=== PATIENT | male | born 1995 | race Two or more races ===

== ENCOUNTER → 2018-04-01 | Outpatient (CLI) | payer OTHER | LOC: M RAD 11:39 | DX: N62 Hypertrophy of breast (principal); N64.4 Mastodynia; N63.22 Unspecified lump in the left breast, upper inner quadrant | CPT/HCPCS: 77066 ==

== ENCOUNTER 2018-11-11 11:24 | Emergency (ER) | payer OTHER ==
[~2018-11-11] VITALS: Ht 172.7 cm; Wt 83.2 kg
[2018-11-11] MEDS ORDERED: HYDR50CA2 PO (11:45)
[2018-11-11 12:01] LABS: HEMATOCRIT 45.5 % (42.0-52.0); HEMOGLOBIN 15.4 g/dl (13.5-17.5); MEAN CORPUSCULAR HEMOGLOBIN 29.5 pg (27.0-33.0); MEAN CORPUSCULAR HGB CONC 33.8 g/dl (32.0-36.5); MEAN CORPUSCULAR VOLUME 87.2 fl (80.0-96.0); PLATELET COUNT, AUTOMATED 258 10^3/uL (150-450); RED BLOOD COUNT 5.22 10^6/uL (4.30-6.10); WHITE BLOOD COUNT 11.1 10^3/uL (4.0-10.0)
[2018-11-11 12:41] LABS: BLOOD UREA NITROGEN 11 MG/DL (7-18); CREATININE FOR GFR 1.22 MG/DL (0.70-1.30); GLOMERULAR FILTRATION RATE > 60.0 (>60); GLUCOSE, FASTING 88 MG/DL (70-100)
[2018-11-11 12:42] LABS: ALBUMIN 4.2 GM/DL (3.2-5.2); ALT/SGPT 23 U/L (12-78); BILIRUBIN,DIRECT 0.2 MG/DL (0.0-0.2); BILIRUBIN,TOTAL 0.8 MG/DL (0.2-1.0); CALCIUM LEVEL 8.9 MG/DL (8.5-10.1); CARBON DIOXIDE LEVEL 25 MEQ/L (21-32); CHLORIDE LEVEL 109 MEQ/L (98-107); POTASSIUM SERUM 4.2 MEQ/L (3.5-5.1); SODIUM LEVEL 142 MEQ/L (136-145); TOTAL PROTEIN 7.5 GM/DL (6.4-8.2)
[2018-11-11 12:52] LABS: BASO % 0.1 % (0.0-1.0); EOS % 0.4 % (0.0-3.0); LYMPH # 1.6 10^3/uL (1.5-6.5); LYMPH % 14.2 % (24.0-44.0); MONO # 0.6 10^3/uL (0.0-0.8); MONO % 5.8 % (0.0-5.0); NEUTROPHILS # 8.7 10^3/uL (1.8-7.7); NEUTROPHILS % 79.2 % (36.0-66.0)
[2018-11-11 13:27] LABS: HIV 1&2 SCREEN CENTAUR NONREACTIVE (NEGATIVE)
[2018-11-11 13:48] VITALS: BP 142/78
== END 2018-11-11 13:55 | disposition home or self-care (01) ==
LOC: M ED 11:24
DX: Z04.89 Encounter for examination and observation for other specified reasons (principal)

== ENCOUNTER → 2018-11-11 | Outpatient (REF) | payer OTHER ==
[~2018-11-11] MED LIST: HYDR50CA2 PO
[2018-11-11 13:18] LABS: CHLAMYDIA DNA AMPLIFICATION NEGATIVE (NEGATIVE); GC DNA AMPLIFICATION NEGATIVE (NEGATIVE)
== END ==
LOC: M SFHCLERA 09:32
PROVIDERS: ATTEND Physician Assistant
DX: Z11.3 Encounter for screening for infections with a predominantly sexual mode of transmission (principal)

== ENCOUNTER → 2019-08-31 | Outpatient (CLI) | payer OTHER ==
--- NOTE | 2019-08-31 15:30 | REP ---
Unilateral focused right breast sonography: History: Hypertrophy of the breast. Scar condition and fibrosis of skin. Comparison sonography April 01, 2018 showed changes consistent with gynecomastia. Status post bilateral gynecomastia resection. Persistent palpable area on the right. In the right retroareolar region centered under the areola there is a 4.0 x 2.6 x 0.7 cm hypoechoic area of tissue quite similar to the previous sonographic appearance. No mass-like properties are seen. This is compatible with residual or recurrent gynecomastia. No cyst is seen. Scanning under the left areola shows a similar area of hypoechoic tissue consistent with gynecomastia. This is actually a little more prominent than on the prior scan measuring roughly 3.9 x 0.7 x 3.5 cm. Impression: Findings consistent with recurrent gynecomastia changes. No mass-like properties. No cyst or fluid collection seen. Findings: The subareolar region of both breasts are scanned, left for comparison purposes. The patient is status post resection bilateral gynecomastia. Electronically Signed by Neil Henriquez MD 08/31/2019 04:53 P
== END ==
LOC: M RAD 13:56
PROVIDERS: ATTEND Plastic Surgery Surgery of the Hand
DX: N62 Hypertrophy of breast (principal); L90.5 Scar conditions and fibrosis of skin

== ENCOUNTER → 2019-10-09 | Outpatient (CLI) | payer OTHER ==
[2019-10-09 16:49] LABS: HEMATOCRIT 46.3 % (42.0-52.0); HEMOGLOBIN 15.3 g/dl (13.5-17.5); MEAN CORPUSCULAR HEMOGLOBIN 29.7 pg (27.0-33.0); MEAN CORPUSCULAR VOLUME 89.9 fl (80.0-96.0); PLATELET COUNT, AUTOMATED 264 10^3/uL (150-450); RED BLOOD COUNT 5.15 10^6/uL (4.30-6.10); WHITE BLOOD COUNT 5.9 10^3/uL (4.0-10.0)
[2019-10-09 17:24] LABS: ALT/SGPT 37 U/L (12-78); BILIRUBIN,DIRECT 0.1 MG/DL (0.0-0.2); BILIRUBIN,TOTAL 0.3 MG/DL (0.2-1.0); BLOOD UREA NITROGEN 14 MG/DL (7-18); CALCIUM LEVEL 8.9 MG/DL (8.5-10.1); CARBON DIOXIDE LEVEL 28 MEQ/L (21-32); CHLORIDE LEVEL 105 MEQ/L (98-107); CREATININE FOR GFR 1.24 MG/DL (0.70-1.30); GLOMERULAR FILTRATION RATE > 60.0 (>60); GLUCOSE, FASTING 74 MG/DL (70-100); POTASSIUM SERUM 4.4 MEQ/L (3.5-5.1); SODIUM LEVEL 139 MEQ/L (136-145); THYROXINE (T4) 9.6 UG/DL (4.5-12.0); TOTAL PROTEIN 7.3 GM/DL (6.4-8.2)
[2019-10-09 17:25] LABS: LUTEINIZING HORMONE 5.6 mIU/mL (1.5-9.3); PROLACTIN 7.2 NG/ML (2.1-17.7)
[2019-10-09 17:27] LABS: ESTRADIOL 36.8 PG/ML (<39.8); FOLLICLE STIMULATING HORMONE 2.7 mIU/mL (1.4-18.1)
[2019-10-12 00:10] LABS: HCG SERUM TUMOR MARKER QUANT < 1 mIU/mL (0-3); TESTOSTERONE FREE (DIRECT) 11.1 pg/mL (9.3-26.5)
== END ==
LOC: M LRY 14:04
PROVIDERS: ATTEND Plastic Surgery Surgery of the Hand
DX: N62 Hypertrophy of breast (principal); L90.5 Scar conditions and fibrosis of skin

== ENCOUNTER 2019-10-22 02:12 | Emergency (ER) | payer OTHER ==
[~2019-10-22] VITALS: Ht 172.7 cm; Wt 80.9 kg
[2019-10-22] MEDS ORDERED: KETOROLAC 60 MG/2 ML VIAL (J1885) IM ONE (03:15)
[2019-10-22] MEDS ORDERED: KETO10TAB PO (03:51)
[2019-10-22 03:56] VITALS: BP 148/70
--- NOTE | 2019-10-22 07:44 | REP ---
Clinical: Acute chest pain . Comparison: None . Findings: The mediastinum and cardiac silhouette are stable and within normal limits for portable technique. The lung marie are clear without acute consolidation, effusion, or pneumothorax. Skeletal structures are intact. Impression: No acute cardiopulmonary process appreciated. Electronically Signed by Matias Pineda MD 10/22/2019 07:35 A
--- NOTE | 2019-10-22 16:10 | ECGEPIP ---
[facility] - ED Test Date: 2019-10-22 Pat Name: JOSE ALFREDO BAEZ Department: Room: - Gender: Male [employer]: manny : 1995 Requested By: MIGNON CULP Order Number: [id number] Reading MD: Bethany Parry Measurements Intervals [place] Rate: 54 P: 56 VA: 177 QRS: 43 QRSD: 101 T: 26 QT: 391 QTc: 373 Interpretive Statements SINUS BRADYCARDIA NO PRIOR Electronically Signed on 10-22-2019 16:10:09 EDT by Bethany Parry
== END 2019-10-22 04:12 | disposition home or self-care (01) ==
LOC: M ED 02:12
DX: R07.1 Chest pain on breathing (principal)
CPT/HCPCS: 71045; 93005; 96372; 99284; J1885

== ENCOUNTER 2020-08-15 02:33 | Emergency (ER) | payer OTHER ==
[~2020-08-15] VITALS: Ht 172.7 cm; Wt 89.4 kg
[~2020-08-15 02:33] MED LIST changes: +KETO10TAB PO
[2020-08-15 02:35] VITALS: BP 154/79
--- OUTSIDE RECORDS SUMMARY | 2020-08-15 02:39 | CCD ---
Author Author [facility] Organization [facility] Address Unknown Phone Unavailable Care Team Providers Care Tool Grinder Name Role Phone DOTTY, E MAURY DO Unavailable Unavailable DOTTY, E MAURY DO Unavailable Unavailable DOTTY, E MAURY DO Unavailable Unavailable DOTTY, E MAURY DO Unavailable Unavailable DOTTY, E MAURY DO Unavailable Unavailable DOTTY, E MAURY DO Unavailable Unavailable DOTTY, E MAURY DO Unavailable Unavailable DOTTY, E MAURY DO Unavailable Unavailable DOTTY, E MAURY DO Unavailable Unavailable DOTTY, E MAURY DO Unavailable Unavailable DOTTY, E MAURY DO Unavailable Unavailable DOTTY, E MAURY DO Unavailable Unavailable DOTTY, E MAURY DO Unavailable Unavailable DOTTY, E MAURY DO Unavailable Unavailable DOTTY, E MAURY DO Unavailable Unavailable DOTTY, E MAURY DO Unavailable Unavailable DOTTY, E MAURY DO Unavailable Unavailable DOTTY, E MAURY DO Unavailable Unavailable DOTTY, E MAURY DO Unavailable Unavailable DOTTY, E MAURY DO Unavailable Unavailable DOTTY, E MAURY DO Unavailable Unavailable Christen Cat RPA-C Unavailable Unavailable Christen Cat RPA-C Unavailable Unavailable Christen Cat RPA-C Unavailable Unavailable Christen Cat RPA-C Unavailable Unavailable Kenniff, P Josemanuel RPA-C Unavailable Unavailable Kenniff, P Josemanuel RPA-C Unavailable Unavailable Kenniff, P Josemanuel RPA-C Unavailable Unavailable Kenniff, P Josemanuel RPA-C Unavailable Unavailable Kenniff, P Josemanuel RPA-C Unavailable Unavailable Kenniff, P Josemanuel RPA-C Unavailable Unavailable Kenniff, P Josemanuel RPA-C Unavailable Unavailable Kenniff, P Josemanuel RPA-C Unavailable Unavailable Kenniff, P Josemanuel RPA-C Unavailable Unavailable Kenniff, P Josemanuel RPA-C Unavailable Unavailable Kenniff, P Josemanuel RPA-C Unavailable Unavailable Kenniff, P Josemanuel RPA-C Unavailable Unavailable Kenniff, P Josemanuel RPA-C Unavailable Unavailable Kenniff, P Josemanuel RPA-C Unavailable Unavailable Kenniff, P Josemanuel RPA-C Unavailable Unavailable Kenniff, P Josemanuel RPA-C Unavailable Unavailable Kenniff, P Josemanuel RPA-C Unavailable Unavailable Kenniff, P Josemanuel RPA-C Unavailable Unavailable Kenniff, P Josemanuel RPA-C Unavailable Unavailable Kenniff, P Josemanuel RPA-C Unavailable Unavailable Kenniff, P Josemanuel RPA-C Unavailable Unavailable Kenniff, P Josemanuel RPA-C Unavailable Unavailable Kenniff, P Josemanuel RPA-C Unavailable Unavailable Kenniff, P Josemanuel RPA-C Unavailable Unavailable Kenniff, P Josemanuel RPA-C Unavailable Unavailable Kenniff, P Josemanuel RPA-C Unavailable Unavailable Kenniff, P Josemanuel RPA-C Unavailable Unavailable Kenniff, P Josemanuel RPA-C Unavailable Unavailable Kenniff, P Josemanuel RPA-C Unavailable Unavailable Kenniff, P Josemanuel RPA-C Unavailable Unavailable Kenniff, P Josemanuel RPA-C Unavailable Unavailable Kenniff, P Josemanuel RPA-C Unavailable Unavailable Kenniff, P Jsoemanuel RPA-C Unavailable Unavailable Kenniff, P Josemanuel RPA-C Unavailable Unavailable Kenniff, P Josemanuel RPA-C Unavailable Unavailable Kenniff, P Josemanuel RPA-C Unavailable Unavailable Kenniff, P Josemanuel RPA-C Unavailable Unavailable Kenniff, P Josemanuel RPA-C Unavailable Unavailable Kenniff, P Josemanuel RPA-C Unavailable Unavailable Kenniff, P Josemanuel RPA-C Unavailable Unavailable Esme FLOREZ MD Unavailable Unavailable Esme FLOREZ MD Unavailable Unavailable Esme FLOERZ MD Unavailable Unavailable Esme FLOREZ MD Unavailable Unavailable Esme FLOREZ MD Unavailable Unavailable Esme FLOREZ MD Unavailable Unavailable Esme FLOREZ MD Unavailable Unavailable Esme FLOREZ MD Unavailable Unavailable Esme FLOREZ MD Unavailable Unavailable Esme FLOREZ MD Unavailable Unavailable Esme FLOREZ MD Unavailable Unavailable Esme FLOREZ MD Unavailable Unavailable Esme FLOREZ MD Unavailable Unavailable Esme FLOREZ MD Unavailable Unavailable Esme FLOREZ MD Unavailable Unavailable Esme FLOREZ MD Unavailable Unavailable Esme FLOREZ MD Unavailable Unavailable Esme FLOREZ MD Unavailable Unavailable Esme FLOREZ MD Unavailable Unavailable Esme FLOREZ MD Unavailable Unavailable Esme FLOREZ MD Unavailable Unavailable Esme FLOREZ MD Unavailable Unavailable Esme FLOREZ MD Unavailable Unavailable Esme FLOREZ MD Unavailable Unavailable Esme FLOREZ MD Unavailable Unavailable Esme FLOREZ MD Unavailable Unavailable Esme FLOREZ MD Unavailable Unavailable Esme FLOREZ MD Unavailable Unavailable Esme FLOREZ MD Unavailable Unavailable Esme FLOREZ MD Unavailable Unavailable Esme FLOREZ MD Unavailable Unavailable Esme FLOREZ MD Unavailable Unavailable Esme FLOREZ MD Unavailable Unavailable Esme FLOREZ MD Unavailable Unavailable Esme FLOREZ MD Unavailable Unavailable Esme FLOREZ MD Unavailable Unavailable Esme FLOREZ MD Unavailable Unavailable Esme FLOREZ MD Unavailable Unavailable Esme FLOREZ MD Unavailable Unavailable Esme FLOREZ MD Unavailable Unavailable Esme FLOREZ MD Unavailable Unavailable Esme FLOREZ MD Unavailable Unavailable Esme FLOREZ MD Unavailable Unavailable Esme FLOREZ MD Unavailable Unavailable Esme FLOREZ MD Unavailable Unavailable Esme FLOREZ MD Unavailable Unavailable Esme FLOREZ MD Unavailable Unavailable Esme FLOREZ MD Unavailable Unavailable Esme FLOREZ MD Unavailable Unavailable Esme FLOREZ MD Unavailable Unavailable Esme FLOREZ MD Unavailable Unavailable Esme FLOREZ MD Unavailable Unavailable Esme FLOREZ MD Unavailable Unavailable Esme FLOREZ MD Unavailable Unavailable Esme FLOREZ MD Unavailable Unavailable Esme FLOREZ MD Unavailable Unavailable Esme FLOREZ MD Unavailable Unavailable Esme FLOREZ MD Unavailable Unavailable Esme FLOREZ MD Unavailable Unavailable Esme FLOREZ MD Unavailable Unavailable Esme FLOREZ MD Unavailable Unavailable Esme FLOREZ MD Unavailable Unavailable Esme FLOREZ MD Unavailable Unavailable Esme FLOREZ MD Unavailable Unavailable Esme FLOREZ MD Unavailable Unavailable Esme FLOREZ MD Unavailable Unavailable Esme FLOREZ MD Unavailable Unavailable Esme FLOREZ MD Unavailable Unavailable Esme FLOREZ MD Unavailable Unavailable Esme FLOREZ MD Unavailable Unavailable Esme FLOREZ MD Unavailable Unavailable Esme FLOREZ MD Unavailable Unavailable Esme BISHOP MD Unavailable Unavailable Esme BISHOP MD Unavailable Unavailable Esme BISHOP MD Unavailable Unavailable Esme BISHOP MD Unavailable Unavailable Esme BISHOP MD Unavailable Unavailable Esme BISHOP MD Unavailable Unavailable Esme BISHOP MD Unavailable Unavailable Esme BISHOP MD Unavailable Unavailable Esme BISHOP MD Unavailable Unavailable Esme BISHOP MD Unavailable Unavailable Esme BISHOP MD Unavailable Unavailable Esme BISHOP MD Unavailable Unavailable Esme BISHOP MD Unavailable Unavailable Esme BISHOP MD Unavailable Unavailable Esme BISHOP MD Unavailable Unavailable Esme BISHOP MD Unavailable Unavailable Esme BISHOP MD Unavailable Unavailable Esme BISHOP MD Unavailable Unavailable Esme BISHOP MD Unavailable Unavailable Esme BISHOP MD Unavailable Unavailable Esme BISHOP MD Unavailable Unavailable Esme BISHOP MD Unavailable Unavailable Esme BISHOP MD Unavailable Unavailable Esme BISHOP MD Unavailable Unavailable Esme BISHOP MD Unavailable Unavailable Esme BISHOP MD Unavailable Unavailable Esme BISHOP MD Unavailable Unavailable Esme BISHOP MD Unavailable Unavailable Esme BISHOP MD Unavailable Unavailable Esme BISHOP MD Unavailable Unavailable Esme BISHOP MD Unavailable Unavailable Esme BISHOP MD Unavailable Unavailable Esme BISHOP MD Unavailable Unavailable Esme BISHOP MD Unavailable Unavailable sEme BISHOP MD Unavailable Unavailable Esme BISHOP MD Unavailable Unavailable Esme BISHOP MD Unavailable Unavailable Esme BISHOP MD Unavailable Unavailable Esme BISHOP MD Unavailable Unavailable Esme BISHOP MD Unavailable Unavailable Esme BISHOP MD Unavailable Unavailable Esme BISHOP MD Unavailable Unavailable Esme BISHOP MD Unavailable Unavailable Esme BISHOP MD Unavailable Unavailable Esme BISHOP MD Unavailable Unavailable Esme BISHOP MD Unavailable Unavailable Esme BISHOP MD Unavailable Unavailable Esme BISHOP MD Unavailable Unavailable Esme BISHOP MD Unavailable Unavailable Esme BISHOP MD Unavailable Unavailable Esme BISHOP MD Unavailable Unavailable Esme BISHOP MD Unavailable Unavailable Esme BISHOP MD Unavailable Unavailable Esme BISHOP MD Unavailable Unavailable Esme BISHOP MD Unavailable Unavailable Esme BISHOP MD Unavailable Unavailable Esme BISHOP MD Unavailable Unavailable Esme BISHOP MD Unavailable Unavailable Esme BISHOP MD Unavailable Unavailable Esme BISHOP MD Unavailable Unavailable Esme BISHOP MD Unavailable Unavailable Esme BISHOP MD Unavailable Unavailable Esme BISHOP MD Unavailable Unavailable Esme BISHOP MD Unavailable Unavailable Re-disclosure Warning The records that you are about to access may contain information from federally-assisted alcohol or drug abuse programs. If such information is present, then the following federally mandated warning applies: This information has been disclosed to you from records protected by federal confidentiality rules (42 CFR part 2). The federal rules prohibit you from making any further disclosure of this information unless further disclosure is expressly permitted by the written consent of the person to whom it pertains or as otherwise permitted by 42 CFR part 2. A general authorization for the release of medical or other information is NOT sufficient for this purpose. The Federal rules restrict any use of the information to criminally investigate or prosecute any alcohol or drug abuse patient.The records that you are about to access may contain highly sensitive health information, the redisclosure of which is protected by Article 27-F of the [facility] Public Health law. If you continue you may have access to information: Regarding HIV / AIDS; Provided by facilities licensed or operated by the [facility] Office of Mental Health; or Provided by the [facility] Office for People With Developmental Disabilities. If such information is present, then the following [facility] mandated warning applies: This information has been disclosed to you from confidential records which are protected by state law. State law prohibits you from making any further disclosure of this information without the specific written consent of the person to whom it pertains, or as otherwise permitted by law. Any unauthorized further disclosure in violation of state law may result in a fine or mcfp sentence or both. A general authorization for the release of medical or other information is NOT sufficient authorization for further disc losure. Allergies and Adverse Reactions Type Description Substance Reaction Status Data Source(s ) No Known Drug Allergies No Known Drug Allergies [facility] No Known Environmental Allergies No Known Environmental Al lergies [facility] No Known Food Allergies No Known Food Allergies [facility] Family History Family Member Name Family Member Gender Family Member Status Date o f Status Description Data Source(s) Unknown Male Problem [facility] ([facility]) Encounters Encounter Providers Location Date Indications Data Source(s ) Outpatient Attender: ANGEL BISHOP MDReferrer: Josemanuel rodriguez RPA-C 06/19/2020 12:12:06 PM EST [facility] Recurring Patient Referrer: Josemanuel GONZALEZC 0 12:06:04 PM EST [facility] Recurring Patient Referrer: Josemanuel Cat RPA-C 0 09:45:05 AM EST [facility] Recurring Patient Referrer: Josemanuel Cat RPA-C 0 09:41:20 AM EST [facility] Outpatient Attender: TALIA FLOREZ MDReferrer: Josemanuel resendiz RPA-C 05/10/2020 12:00:00 AM [facility] Outpatient Attender: TALIA FLOREZ MD 03/08/2020 12:00:00 A M [facility] Outpatient Attender: Josemanuel Cat RPA-C 0 01/22/2020 10:25:00 AM EDT - 01/22/2020 11:25:00 AM EDT [facility] Patient discharged. Recurring Patient Referrer: Josemanuel Cat RPA-C 0 03:21:03 PM EDT [facility] Outpatient Attender: MAURY Day/Peytona/Marshall/Reind l 11/17/2019 11:30:00 AM EDT [facility] ([facility]) Outpatient 11/11/2019 07:39:00 AM EDT [facility] Out[facility] 09/20/2019 05:10:00 AM EST [facility] Out[facility] 09/05/2019 03:52:00 PM EST [facility] Outpatient Attender: MAURY Day/Peytona/Marshall/Reind l 08/23/2019 01:15:00 PM EST [facility] ([facility]) Insurance Providers Payer name Policy type / Coverage type Policy ID Covered democrat ID Covered democrat's relationship to isabel Policy Isabel Plan Information [facility] ACTIVE DUTY [id number] SP [id number] [facility] F [id number] SELF [id number] U [id number] Self [id number] [facility] [place] [id number] 18 [id number] [place] [id number] 18 [id number] [place] [id number] S [id number] [facility] ACTIVE DUTY [id number] SP [id number] [facility] Humana Commercial [id number] Self [id number] [facility] [place] [id number] 18 [id number] [facility] Humana Commercial [id number] Self [id number] ANSI-Not a Secondary Insurance [id number] ACTIVE DUTY [id number] SP [id number] [facility] Hum[employer] Commercial [id number] Self [id number] [facility] [employer] Commercial [id number] Self [id number] Problems, Conditions, and Diagnoses Code Display Name Description Problem Type Effective Dates Data Source(s) [id number] Pain in left shoulder Pain in left shoulder Diagnosis 01/22/2020 10:25:[address] [facility] Results ID Date Data Source [id number] 06/19/2020 12:12:06 PM EST [facility]: Jose Alfredo BarbaDOB: 1995Provider: Chris Bishop: 06/19/2020 Reason For Nisha Barba is here today for LEFT WRIST. Jose Alfredo Barba is a new patient. HERE TODAY C/O LEFT WRIST PAIN SINCE FALL IN 2018. PATIENT STATES HE WAS PLAYING BASEBALL AND FELL BACKWARDS. PAINFUL EVER SINCE. AUG 2019 MRI DONE. ([place]). Patient is working at this time at regular duty. AssessmentNew patient problem. Here for chief complaint left wrist pain. 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 Patient reports pain in the left wrist. Said it began when he fell in 2018. Reports he's had some discomfort in the wrist slowly improving but persistent and limiting some activities since that time. Initially described significant swelling and stiffness. The patient's been treating it primarily with activity modification after using splint support percent time and doing 3 months of occupational therapy. Ultimately limitations in ability prompted the providers at work drum to obtain an MRI of the left wrist. Indistinct TFCC was read as palmar type IB tear peripheral and a central disc perforation. Patient's here for further evaluation.Reports she has been normal some days but other days some limitation and some discomfort. Flat handed pushups or bothers him. He reports his admin dir strength is diminished when doing juWatly BVtsu activities. Doesn't see any visible swelling. Has no mechanical symptoms. Denies numbness and tingling in the fingers.No new medications.Exam:Awake and alert, well-developed, well nourished and in no distress Patient is oriented x3, mood appropriate, gait normal, coordination normal, vascular status intact , skin is intact without breakdown or lesions.Bilateral upper extremities show full motion shoulder elbow wrist and hand. No obvious swelling or deformity about the left wrist. No focal tenderness over the ulnar styloid ECU tendon LT interval. No instability or stress tenderness of the distal radioulnar joint left. Mild capsular tenderness of the dorsal wrist with dorsiflexion. No evidence of SL interval or midcarpal instability. Tinel's and Phalen's negative. 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 MR findings in the TFCC but clinically minimal findings there.Plan: Discussed the results of the medical exam. Discussed the nature of the medical condition. Discussed treatment options. 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 Sent here for TFCC evaluation based on findings on MR but clinically the patient has no attributable symptoms to the TFCC or ulnar wrist on exam today. He is managing the symptoms with activity modification, splint support. I think that's perfectly reasonable. We discussed injection. We discussed surgery and this is just simply not bad enough for consideration of surgical treatment. Basically we discussed an arthroscopy because he remains symptomatic with wrist complaints to his superior requesting limited duty on an ongoing basis and MR findings which don't really correlate with the patient's clinical symptoms. Arthroscopy sometimes needed for further clarification of the significance of the MR findings. Again I don't think is really indicated in this situation. I think that he has improved feels positive that his symptoms can be managed with slight activity modification such as limited Flathand pushups. Pushups on a pushup stand or on his knuckles can be done without limitation. Sym ptoms change he can return for reevaluation.This note was dictated using [employer] voice recognition software. A reasonable attempt was made to access the note for accuracy and grammatical correctness.Please contact us for any questions regarding the content of the above note.Angel Bishop [facility]: The patient Signatures Electronically signed by : Angel Bishop M.D.; Jun 19 2020 12:12PM EST (Author) Name Value Range Interpretation Code Description Data Mary Jo rce(s) Supporting Document(s) ID Date Data Source [id number] 01/23/2020 08:40:00 [place] [address] PHONE: [phone] FAX: [phone] Name .................. : SASHA VELIZ Acct Number.................. : [id number] ROOM. ................. : Number ................... : [id number] Stay type ............. : O/P Discharge Date......... ... : 01/22/20 Admit Date ....... .. : 01/22/20 Admit Phys .................... : ELOISE PATEL Date of ....... : 1995 Family Phys ................... : NONSTAFF Phone .................. : [phone] Age ................................ : 24 Film# .................. .:[id number] Sex ................................. : M Unsigned transcriptions are preliminary reports and do not represent a medical or legal document INJECTION FOR SHOULDER ARTHRO [id number] COMPLETE:01/22/20 10:30 64304 (REASON FOR PROCESS: PAIN FLUOROSCOPIC EXAMINATION OF THE LEFT SHOULDER FOR ARTHROGRAM, 01/22/20: INDICATION: Pain. PROCEDURE: The benefits and risks of the examination were discussed with the patient. The patient has given informed consent for the procedure. A time out was performed confirming the left shoulder is the proper shoulder for today's examination. The skin surface was marked using fluoroscopic guidance. The skin was prepped and dressed in normal sterile fashion. Superficial and deep Lidocaine administration was performed with a 25- gauge needle. A 22- gauge spinal needle was then placed and advanced under fluoroscopic guidance. The needle was passed into the joint space at which time iodinated contrast was administered to confirm proper placement. Approximately 5 cc of iodinated contrast was administered. Once the proper placement was confirmed, approximately 7 cc of 1:200 Gadolinium solution was administered. The needle was then removed. The skin was cleansed and bandaged. No complications were experienced during the procedure. Three images were obtained, and fluoro time was 3 seconds. Examination dictated by ADI Acosta. Examination was reviewed with Hiren Curtis MD, radiologist at the time of this dictation. Page 1 of 2 [facility] [address] [place] [address] PHONE: [phone] FAX: [phone] Name .................. : SASHA VELIZ Acct Number.................. : [id number] ROOM. ................. : Number ................... : [id number] Stay type ............. : O/P Discharge Date......... ... : 01/22/20 Admit Date ......... : 01/22/20 Admit Phys .................... : ELOISE PATEL Date of ....... : 1995 Family Phys ................... : NONSTAFF Phone .................. : [phone] Age ................................ : 24 Film# .................. .:[id number] Sex ................................. : M Unsigned transcriptions are preliminary reports and do not represent a medical or legal document INJECTION FOR SHOULDER ARTHRO [id number] COMPLETE:01/22/20 10:30 78308 (REASON FOR PROCESS: PAIN Electronically Reviewed and Signed By Hiren Curtis MD , 01/23/20 08:40, AML Transcribe Initials: SSR, Transcribe Date: 01/22/20 13:33, Dictation Date: Copy for: [facility] Page 2 of 2 Name Value Range Interpretation Code Description Data Mary Jo rce(s) Supporting Document(s) ID Date Data Source [id number] 01/23/2020 08:38:00 AM EDT [facility] [address] [place] [address] PHONE: [phone] FAX: [phone] Name .................. : SASHA VELIZ Acct Number.................. : [id number] ROOM. ................. : MR Number ................... : [id number] Stay type ............. : O/P Discharge Date......... ... : 01/22/20 Admit Date ....... .. : 01/22/20 Admit Phys .................... : ELOISE PATEL Date of ....... : 1995 Family Phys ................... : NONSTAFF Phone .................. : [phone] Age ................................ : 24 Film# .................. .:[id number] Sex ................................. : M Unsigned transcriptions are preliminary reports and do not represent a medical or legal document MRI UPPER EXT JOINT W CONT [place] [id number] COMPLETE:01/22/20 12:32 [facility] [id number] (REASON FOR PROCESS: PAIN MRI OF THE LEFT SHOULDER: TECHNIQUE: Imaging was performed following intra-articular Gadolinium administration. FINDINGS: Fracture, destructive osseous lesion or osteonecrosis is not seen. The supraspinatus tendon, subscapularis tendon, infraspinatus tendon, teres minor tendon and long head of the biceps tendon are intact. A labral tear is not appreciated. The glenohumeral ligaments appear intact. Abn ormal bursal fluid collection is not identified. IMPRESSION: Unremarkable MRI of the left shoulder with intra-articular Gadolinium administration. Electronically Reviewed and Signed By Ariadna Aj MD , 01/23/20 08:38, NOHELIA Transcribe Initials: DZ , Transcribe Date: 01/22/20 23:16, Dictation Date: Copy for: [address] [facility] Page 1 of 1 Name Value Range Interpretation Code Description Data Mary Jo rce(s) Supporting Document(s) ID Date Data Source [id number] 10/09/2019 02:40:00 PM EDT [facility] ([facility]) Name Value Range Interpretation Code Description Data Mary Jo rce(s) Supporting Document(s) Testosterone Total For T&D 620.0 ng/dL [id number] Azra l (applies to non-numeric results) [facility] ([facility]) <content>Adult male reference interval i s based on a population of</content>
<content>healthy nonobese males (BMI <30) between 19 and 39 years</content>
<content>old. Mariposa et.al. JCEM 2017,102;9082-0556. PMID:</content>
<content>[id number].</content>
<content></content> Testosterone Free (Direct) 11.1 pg/mL 9.3-26.5 Azra l (applies to non-numeric results) [facility] ([facility]) ID Date Data Source [id number] 10/09/2019 02:40:00 PM EDT [facility] ([facility]) Name Value Range Interpretation Code Description Data Mary Jo rce(s) Supporting Document(s) Prolactin [Mass/volume] in Serum or Plasma 7.2 ng/mL 2.1-1 7.7 Normal (applies to non-numeric results) [facility] ([facility] ) Choriogonadotropin.beta subunit free [Units/volume] in Serum or Plasma Laboratory test result 0-3 Normal (applies to non-numeric results) [facility] ([facility]) Romana ECLIA methodology Performed at: [facility] [address] [id number] Turntable Worker: Citlaly Hernandez MD, Phone: [phone] THE hCG ASSAY IS PERFORMED BY ROMANA [facility]CL[facility] [employer] AT [facility] AND SHOULD NOT BE COMPARED INTERCHANGEABLY WITH OTHER METHODS. IT SHOULD NOT BE USED ALONE A SCREENING TEST OR DIAGNOSIS FOR THE PRESENCE OR ABSENCE OF MALIGNANT DISEASE. THESE RESULTS ARE NOT INTERPRETABLE IN FEMALES. PREDICTIONS OF DISEASE RECURRENCE SHOULD NOT BE BASED SOLELY ON VALUES OBTAINED FROM SERIAL PATIENT SERUM VALUES. ID Date Data Source [id number] 10/09/2019 02:40:[address] [facility]) Name Value Range Interpretation Code Description Data Mary Jo rce(s) Supporting Document(s) Follicle Stimulating Hormone 2.7 mIU/mL 1.4-18.1 Nor mal (applies to non-numeric results) [facility] ([facility]) Luteinizing Hormone 5.6 mIU/mL 1.5-9.3 Normal (applies to no n-numeric results) [facility]) ID Date Data Source [id number] 10/09/2019 02:40:[address] [facility]) Name Value Range Interpretation Code Description Data Mary Jo rce(s) Supporting Document(s) Estradiol (E2) [Mass/volume] in Serum or Plasma 36.8 pg/mL Normal (applies to non-numeric results) [facility]) <content>NORMAL MENSTRUATING FEMALES:</content>
<content></content>
<content>FOLLICULAR PHASE 19.5-144.2 PG/ML</content>
<content>MID CYCLE PEAK 63.9- 356.7 PG/ML</content>
<content>LUTEAL PHASE 55.8-214.2 PG/ML</content>
<content></content>
<content>POST MENOPAUSAL FEMALES <32.2 PG/ML</content>
<content>(UNTREATED)</content>
<content></content>
<content>THE eESTRADIOL2 ASSAY IS PERFORMED ON THE [employer] BY</content>
<content>CHEMILUMINESCENCE AND SHOULD NOT BE COMPARED INTERCHANGEABLY</content>
<content>WITH OTHER METHODS.</content>
<content></content>
<content>Falsely elevated Estradiol test results can be seen in</content>
<content>patients treated with fulvestrant (Faslodex). Estradiol</content>
<content>concentrations in fulvestrant treated women should only be</content>
<content>measured by LC- MS (Liquid Chromatography-Mass Spectrometry).</content>
<content></content> Progesterone [Mass/volume] in Serum or Plasma 0.80 ng/mL 0. 28-1.22 Normal (applies to non-numeric results) [facility] ([facility]) Thyroxine (T4) [Mass/volume] in Serum or Plasma 9.6 ug/dL 4.5-12.0 Normal (applies to non-numeric results) [facility] ([facility]) Thyrotropin [Units/volume] in Serum or Plasma 3.790 uIU/ML 0. 358-3.740 Above high normal [facility] ([facility]) ID Date Data Source [id number] 10/09/2019 02:40:00 PM EDT [facility] ([facility]) Name Value Range Interpretation Code Description Data Mary Jo rce(s) Supporting Document(s) Blood Urea Nitrogen 14 mg/dL 7-18 Normal (applies to non-nume michelle results) [facility] ([facility]) Glucose, Fasting 74 mg/dL 70-100 Normal (applies to non-numeric results) [facility] ([facility]) Sodium Level 139 meq/L 136-145 Normal (applies to non-numeric res ults) [facility] ([facility]) Creatinine For GFR 1.24 mg/dL 0.70-1.30 Normal (applies to non -numeric results) [facility] ([facility]) Glomerular Filtration Rate Laboratory test result Normal (applies to non- numeric results) [facility]) <content>Units are mL/min/1.73 m2</content>
<content></content>
<content>Chronic Kidney Disease Staging per NKF:</content>
<content></content>
<content>Stage I & II GFR >=60 Normal to Mildly Decreased</content>
<content>Stage III GFR 30- 59 Moderately Decreased</content>
<content>Stage IV GFR 15-29 Severely Decreased</content>
<content>Stage V GFR <15 Very Little GFR Left</content>
<content>ESRD GFR <15 on NATURAL HISTORY COLLECTIONS CURATOR</content>
<content></content> Carbon Dioxide Level 28 meq/L 21-32 Normal (applies to non-num carlos results) [facility] ([facility]) Chloride Level 105 meq/L 98-107 Normal (applies to non-numeric r esults) [facility] ([facility]) Potassium Serum 4.4 meq/L 3.5-5.1 Normal (applies to non-numeric results) [facility] ([facility]) Anion Gap 6 meq/L 8-16 Below low normal [facility] ( [facility]) Calcium Level 8.9 mg/dL 8.5-10.1 Normal (applies to non-numeric re sults) [facility] ([facility]) ID Date Data Source [id number] 10/09/2019 02:40:00 PM EDT [facility] ([facility]) Name Value Range Interpretation Code Description Data Mary Jo rce(s) Supporting Document(s) Alt/SGPT 37 U/L 12-78 Normal (applies to non-numeric resul ts) [facility] ([facility]) Ast/Sgot 32 U/L 7-37 Normal (applies to non-numeric resul ts) [facility] ([facility]) Alkaline Phosphatase 77 U/L 45-117 Normal (applies to non-num carlos results) [facility]) Bilirubin,Total 0.3 mg/dL 0.2-1.0 Normal (applies to non-numeric results) [facility] ([facility]) Albumin 4.0 GM/DL 3.2-5.2 Normal (applies to non-numeric resul ts) [facility]) Bilirubin,Direct 0.1 mg/dL 0.0-0.2 Normal (applies to non-numeric results) [facility]) Total Protein 7.3 GM/DL 6.4-8.2 Normal (applies to non-numeric re sults) [facility]) Albumin/Globulin Ratio 1.21 1.00-1.93 Normal (applies to non-numeric results) [facility]) ID Date Data Source [id number] 10/09/2019 02:40:[address] [facility]) Name Value Range Interpretation Code Description Data Mary Jo rce(s) Supporting Document(s) Red Blood Count 5.15 10 4.30-6.10 Normal (applies to non-numeric results) [facility]) White Blood Count 5.9 10 4.0-10.0 Normal (applies to non-numeri c results) [facility]) Hemoglobin 15.3 g/dL 13.5-17.5 Normal (applies to non-numeric resul ts) [facility]) Hematocrit 46.3 % 42.0-52.0 Normal (applies to non-numeric resul ts) [facility]) Mean Corpuscular HGB Conc 33.0 g/dL 32.0-36.5 Normal (applies to non-numeric results) [facility]) Mean Corpuscular Hemoglobin 29.7 pg 27.0-33.0 Norm al (applies to non-numeric results) [facility]) Red Cell Distribution Width 12.8 % 11.5-14.5 Norm al (applies to non-numeric results) [facility]) Mean Corpuscular Volume 89.9 fl 80.0-96.0 Normal ( applies to non-numeric results) [facility]) Platelet Count, Automated 264 10 150-450 Normal (applies to non-numeric results) [facility]) Nucleated Red Blood Cell % 0.0 % 0-0 Normal (applies to n on-numeric results) [facility] ([facility]) Procedure Vital Signs ID Date Data Source [id number] Name Value Range Interpretation Code Description Data Source(s) Body weight 86.184 kg 86.184 kg [facility] ([facility]) Body mass index (BMI) [Ratio] 28.5 kg/m2 28.5 k g/m2 [facility] ([facility]) Body weight 190.00 [lb_av] 190.00 [lb_av] [facility] ([facility]) Body height 68.5 [in_i] 68.5 [in_i] [facility] ([facility]) 5'8.50" Body temperature 97.2 [degF] 97.2 [degF] [facility] ([facility]) Respiratory rate 14 /min 14 /min [facility] ( [facility]) Heart rate 76 /min 76 /min [facility] ([facility]) Diastolic blood pressure 78 mm[Hg] 78 mm[Hg] [facility] ([facility]) Systolic blood pressure 138 mm[Hg] 138 mm[Hg] [facility] ([facility]) Body height 68.5 [in_i] 68.5 [in_i] [facility] ([facility]) 5'8.50" Body temperature 98.1 [degF] 98.1 [degF] [facility] ([facility]) Respiratory rate 14 /min 14 /min [facility] ( [facility]) Heart rate 66 /min 66 /min [facility] ([facility]) Diastolic blood pressure 78 mm[Hg] 78 mm[Hg] [facility] ([facility]) Systolic blood pressure 142 mm[Hg] 142 mm[Hg] M [facility] ([facility]) Body weight 79.834 kg 79.834 kg [facility] ([facility]) Body mass index (BMI) [Ratio] 26.4 kg/m2 26.4 k g/m2 [facility] ([facility]) Body weight 176.00 [lb_av] 176.00 [lb_av] RISHABHEN T ([facility], ) Body height 68.5 [in_i] 68.5 [in_i] RUBINA ([facility], ) 5'8.50" Respiratory rate 14 /min 14 /min [facility] ( [facility], ) Heart rate 76 /min 76 /min [facility] ([facility], ) Diastolic blood pressure 68 mm[Hg] 68 mm[Hg] [facility]UB[facility] ([facility], ) Systolic blood pressure 140 mm[Hg] 140 mm[Hg] Herbert DOWNING ([facility], )
[2020-08-15] MEDS ORDERED: TRAZ-252 PO (02:48)
[2020-08-15] MEDS ORDERED: DOCU100C16 PO (02:48)
--- OUTSIDE RECORDS SUMMARY | 2020-08-15 04:25 | CCD ---
Author Author [facility] Organization [facility] Address Unknown Phone Unavailable Care Team Providers Care Inventory Control Associate Name Role Phone DOTTY, E MAURY DO [...] Unavailable Esme BISHOP MD Unavailable Unavailable Esme IBSHOP MD Unavailable Unavailable Esme BISHOP MD Unavailable [...] Unavailable Esme BISHOP MD Unavailable Unavailable Esme IBSHOP MD Unavailable Unavailable Esme BISHOP MD Unavailable [...] is protected by Article 27-F of the [facility] Public Health law. If you continue you may have access to information: Regarding HIV / AIDS; Provided by facilities licensed or operated by the [facility] Office of Mental Health; or Provided by the [facility] Office for People With Developmental Disabilities. If such information is present, then the following [facility] mandated warning applies: This information has been [...] law may result in a fine or skilled nursing sentence or both. A general authorization for the release of medical or other information is NOT sufficient authorization for further disc losure. Allergies and Adverse Reactions Type Description Substance Reaction Status Data Source(s ) No Known Drug Allergies No Known Drug Allergies [facility] No Known Environmental Allergies No Known Environmental Al lergies [facility] No Known Food Allergies No Known Food Allergies [facility] Family History Family Member Name Family Member Gender Family Member Status Date o f Status Description Data Source(s) Unknown Male Problem [facility] ([facility]) Encounters Encounter Providers Location Date Indications Data Source(s ) Outpatient Attender: ANGEL BISHOP MDReferrer: Josemanuel rodriguez RPA-C 06/19/2020 12:12:06 PM EST [facility] Recurring Patient Referrer: Josemanuel GONZALEZC 0 12:06:04 PM EST [facility] Recurring Patient Referrer: Josemanuel Cat RPA-C 0 09:45:05 AM EST [facility] Recurring Patient Referrer: Josemanuel Cat RPA-C 0 09:41:20 AM EST [facility] Outpatient Attender: TALIA FLOREZ MDReferrer: Josemanuel resendiz RPA-C 05/10/2020 12:00:[address] [facility] Outpatient Attender: TALIA FLOREZ MD 03/08/2020 12:00:[address] [facility] Outpatient Attender: Josemanuel Cat RPA-C 0 01/22/2020 10:25:00 AM EDT - 01/22/2020 11:25:00 AM EDT [facility] Patient discharged. Recurring Patient Referrer: Josemanuel Cat RPA-C 0 03:21:03 PM EDT [facility] Outpatient Attender: MAURY [place] 11/17/2019 11:30:00 AM EDT [facility] ([facility]) Outpatient 11/11/2019 07:39:00 AM EDT [facility] Outpatient 09/20/2019 05:10:00 AM EST [facility] Outpatient 09/05/2019 03:52:00 PM EST [facility] Outpatient Attender: MAURY Day/[place] 08/23/2019 01:15:00 PM EST [facility] ([facility]) Insurance Providers Payer name Policy type / Coverage type Policy ID Covered constitution party ID Covered constitution party's relationship to isabel Policy Isabel Plan Information [facility] ACTIVE DUTY [id number] SP [id number] [facility] F [id number] SELF [id number] U [id number] Self [id number] [facility] [place] [id number] 18 [id number] [place] [id number] 18 [id number] [place] [id number] S [id number] [facility] ACTIVE DUTY [id number] SP [id number] [facility] Humana Commercial [id number] Self [id number] [facility] [place] [id number] 18 [id number] [facility] Hum[employer] Commercial [id number] Self [id number] ANSI-Not a Secondary Insurance [id number] ACTIVE DUTY [id number] SP [id number] [facility] [employer] Commercial [id number] Self [id number] [facility] [employer] Commercial [id number] Self [id number] Problems, Conditions, and Diagnoses Code Display Name Description Problem Type Effective Dates Data Source(s) U63215 Pain in left shoulder Pain in left shoulder Diagnosis 01/22/2020 10:25:00 AM [facility] Results ID Date Data Source [id number] 06/19/2020 12:12:06 PM EST [facility]: Jose Alfredo BarbaDOB: 1995Provider: Chris Bishop: 06/19/2020 Reason For Nisha Barba is here today for LEFT WRIST. Jose Alfredo Barba is a new patient. HERE TODAY C/O LEFT WRIST PAIN SINCE FALL IN 2018. PATIENT STATES HE WAS PLAYING BASEBALL AND FELL BACKWARDS. PAINFUL EVER SINCE. AUG 2019 MRI DONE. ([employer]). Patient is working at this time at regular duty. AssessmentNew patient problem. Here for chief complaint left wrist pain. 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 Patient reports pain in the left wrist. [...] pushups or bothers him. 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 Doesn't see any visible swelling. Has [...] or midcarpal instability. Tinel's and Phalen's negative. Gear Shaper strength 120/120/120 pounds right and 100/90/90 pounds [...] return for reevaluation.This note was dictated using [email or web address] voice recognition software. A reasonable attempt was made to access the note for accuracy and grammatical correctness.Please contact us for any questions regarding the content of the above note.Angel Bishop [facility]: The patient Signatures Electronically signed by : Angel Bishop M.D.; Jun 19 2020 12:12PM EST (Author) Name Value Range Interpretation Code Description Data Mary Jo rce(s) Supporting Document(s) ID Date Data Source [id number] 01/23/2020 08:40:00 [place] [address] PHONE: [phone] FAX: [phone] Name .................. : SASHA VELIZ Acct Number.................. : [id number] ROOM. ................. : Number ................... : [id number] Stay type ............. : O/P Discharge Date......... ... : 01/22/20 Admit Date ....... .. : 01/22/20 Admit Phys .................... : ELOISE PATEL Date of ....... : 1995 Family Phys ................... : NONSTAFF Phone .................. : [phone] Age ................................ : 24 Film# .................. .:[id number] Sex ................................. : M Unsigned transcriptions are preliminary reports and do not represent a medical or legal document INJECTION FOR SHOULDER ARTHRO [id number] COMPLETE:01/22/20 10:30 [id number] (REASON FOR PROCESS: PAIN FLUOROSCOPIC EXAMINATION OF [...] of this dictation. Page 1 of [address] [facility] [address] [place] [address] PHONE: [phone] FAX: [phone] Name .................. : SASHA VELIZ Acct Number.................. : [id number] ROOM. ................. : Number ................... : [id number] Stay type ............. : O/P Discharge Date......... ... : 01/22/20 Admit Date ......... : 01/22/20 Admit Phys .................... : ELOISE PATEL Date of ....... : 1995 Family Phys ................... : NONSTAFF Phone .................. : [phone] Age ................................ : 24 Film# .................. .:[id number] Sex ................................. : M Unsigned transcriptions are preliminary reports and do not represent a medical or legal document INJECTION FOR SHOULDER ARTHRO [id number] COMPLETE:01/22/20 10:30 93441 (REASON FOR PROCESS: PAIN Electronically Reviewed and Signed By Hiren Curtis MD , 01/23/20 08:40, AML Transcribe Initials: SSR, Transcribe Date: 01/22/20 13:33, Dictation Date: Copy for: [address] [facility] REC Page 2 of 2 Name Value Range Interpretation Code Description Data Mary Jo rce(s) Supporting Document(s) ID Date Data Source [id number] 01/23/2020 08:38:00 AM EDT [facility] [address] [place] [address] PHONE: [phone] FAX: [phone] Name .................. : SASHA VELIZ Acct Number.................. : [id number] ROOM. ................. : MR Number ................... : [id number] Stay type ............. : O/P Discharge Date......... ... : 01/22/20 Admit Date ....... .. : 01/22/20 Admit Phys .................... : ELOISE PATEL Date of ....... : 1995 Family Phys ................... : NONSTAFF Phone .................. : [phone] Age ................................ : 24 Film# .................. .:[id number] Sex ................................. : M Unsigned transcriptions are preliminary reports and do not represent a medical or legal document MRI UPPER EXT JOINT W CONT LT [id number] COMPLETE:01/22/20 12:32 [facility] [id number] (REASON FOR PROCESS: PAIN MRI OF THE [...] 23:16, Dictation Date: Copy for: [facility] Page 1 of 1 Name Value Range Interpretation Code Description Data Mary Jo rce(s) Supporting Document(s) ID Date Data Source [id number] 10/09/2019 02:40:00 PM [facility] Name Value Range Interpretation Code Description Data Mary Jo rce(s) Supporting Document(s) Testosterone Total For T&D 620.0 ng/dL 264-916 Azra l (applies to non-numeric results) [facility] ([facility]) <content>Adult male reference interval i s based on a population of</content>
<content>healthy nonobese males (BMI <30) between 19 and 39 years</content>
<content>old. Mariposa et.al. JCEM 2017,102;4684-5482. PMID:</content>
<content>[id number].</content>
<content></content> Testosterone Free (Direct) 11.1 pg/mL 9.3-26.5 Azra l (applies to non-numeric results) [facility] ([facility]) ID Date Data Source [id number] 10/09/2019 02:40:00 PM EDT [facility] ([facility]) Name Value Range Interpretation Code Description Data Mary Jo rce(s) Supporting Document(s) Prolactin [Mass/volume] in Serum or Plasma 7.2 ng/mL 2.1-1 7.7 Normal (applies to non-numeric results) [facility] ([facility] ) Choriogonadotropin.beta subunit free [Units/volume] in Serum or Plasma Laboratory test result 0-3 Normal (applies to non-numeric results) [facility] ([facility]) Romana ECLIA methodology Performed at: [facility] [address] [id number] [employer] Foreman: Citlaly Hernandez MD, Phone: [phone] THE hCG ASSAY IS PERFORMED BY ROMANA ECLIA METHODOLOGY AT [facility] AND SHOULD NOT BE COMPARED INTERCHANGEABLY WITH OTHER METHODS. IT SHOULD NOT BE USED ALONE A SCREENING TEST OR DIAGNOSIS FOR THE PRESENCE OR ABSENCE OF MALIGNANT DISEASE. THESE RESULTS ARE NOT INTERPRETABLE IN FEMALES. PREDICTIONS OF DISEASE RECURRENCE SHOULD NOT BE BASED SOLELY ON VALUES OBTAINED FROM SERIAL PATIENT SERUM VALUES. ID Date Data Source [id number] 10/09/2019 02:40:00 PM EDT [facility]) Name Value Range Interpretation Code Description Data Mary Jo rce(s) Supporting Document(s) Follicle Stimulating Hormone 2.7 mIU/mL 1.4-18.1 Nor mal (applies to non-numeric results) [facility] ([facility]) Luteinizing Hormone 5.6 mIU/mL 1.5-9.3 Normal (applies to no n-numeric results) [facility]) ID Date Data Source [id number] 10/09/2019 02:40:00 PM EDT [facility]) Name Value Range Interpretation Code Description Data Mary Jo rce(s) Supporting Document(s) Estradiol (E2) [Mass/volume] in Serum or Plasma 36.8 pg/mL Normal (applies to non-numeric results) [facility]) <content>NORMAL MENSTRUATING FEMALES:</content>
<content></content>
<content>FOLLICULAR PHASE 19.5-144.2 PG/ML</content>
<content>MID CYCLE PEAK 63.9- 356.7 PG/ML</content>
<content>LUTEAL PHASE 55.8-214.2 PG/ML</content>
<content></content>
<content>POST MENOPAUSAL FEMALES <32.2 PG/ML</content>
<content>(UNTREATED)</content>
<content></content>
<content>THE eESTRADIOL2 ASSAY IS PERFORMED ON THE [employer] BY</content>
<content>CHEMILUMINESCENCE AND SHOULD NOT BE COMPARED INTERCHANGEABLY</content>
<content>WITH OTHER METHODS.</content>
<content></content>
<content>Falsely elevated Estradiol test results can be seen in</content>
<content>patients treated with fulvestrant (Faslodex). Estradiol</content>
<content>concentrations in fulvestrant treated women should only be</content>
<content>measured by LC- MS (Liquid Chromatography-Mass Spectrometry).</content>
<content></content> Progesterone [Mass/volume] in Serum or Plasma 0.80 ng/mL 0. 28-1.22 Normal (applies to non-numeric results) [facility] ([facility]) Thyroxine (T4) [Mass/volume] in Serum or Plasma 9.6 ug/dL 4.5-12.0 Normal (applies to non-numeric results) [facility] ([facility]) Thyrotropin [Units/volume] in Serum or Plasma 3.790 uIU/ML 0. 358-3.740 Above high normal [facility] ([facility]) ID Date Data Source [id number] 10/09/2019 02:40:00 PM EDT [facility] ([facility]) Name Value Range Interpretation Code Description Data Mary Jo rce(s) Supporting Document(s) Blood Urea Nitrogen 14 mg/dL 7-18 Normal (applies to non-nume michelle results) [facility] ([facility]) Glucose, Fasting 74 mg/dL 70-100 Normal (applies to non-numeric results) [facility] ([facility]) Sodium Level 139 meq/L 136-145 Normal (applies to non-numeric res ults) [facility] ([facility]) Creatinine For GFR 1.24 mg/dL 0.70-1.30 Normal (applies to non -numeric results) [facility] ([facility]) Glomerular Filtration Rate Laboratory test result Normal (applies to non- numeric results) [facility]) <content>Units are mL/min/1.73 m2</content>
<content></content>
<content>Chronic Kidney Disease Staging per NKF:</content>
<content></content>
<content>Stage I & II GFR >=60 Normal to Mildly Decreased</content>
<content>Stage III GFR 30- 59 Moderately Decreased</content>
<content>Stage IV GFR 15-29 Severely Decreased</content>
<content>Stage V GFR <15 Very Little GFR Left</content>
<content>ESRD GFR <[address]ARTER</content>
<content></content> Carbon Dioxide Level 28 meq/L 21-32 Normal (applies to non-num carlos results) [facility] Chloride Level 105 meq/L 98-107 Normal (applies to non-numeric r esults) [facility] ([facility]) Potassium Serum 4.4 meq/L 3.5-5.1 Normal (applies to non-numeric results) [facility] ([facility]) Anion Gap 6 meq/L 8-16 Below low normal [facility] ( [facility]) Calcium Level 8.9 mg/dL 8.5-10.1 Normal (applies to non-numeric re sults) [facility] ([facility]) ID Date Data Source [id number] 10/09/2019 02:40:00 PM EDT [facility] ([facility]) Name Value Range Interpretation Code Description Data Mary Jo rce(s) Supporting Document(s) Alt/SGPT 37 U/L 12-78 Normal (applies to non-numeric resul ts) [facility] ([facility]) Ast/Sgot 32 U/L 7-37 Normal (applies to non-numeric resul ts) [facility] ([facility]) Alkaline Phosphatase 77 U/L 45-117 Normal (applies to non-num carlos results) [facility]) Bilirubin,Total 0.3 mg/dL 0.2-1.0 Normal (applies to non-numeric results) [facility] ([facility]) Albumin 4.0 GM/DL 3.2-5.2 Normal (applies to non-numeric resul ts) [facility]) Bilirubin,Direct 0.1 mg/dL 0.0-0.2 Normal (applies to non-numeric results) [facility]) Total Protein 7.3 GM/DL 6.4-8.2 Normal (applies to non-numeric re sults) [facility]) Albumin/Globulin Ratio 1.21 1.00-1.93 Normal (applies to non-numeric results) [facility]) ID Date Data Source [id number] 10/09/2019 02:40:00 PM EDT [facility]) Name Value Range Interpretation Code Description Data Mary Jo rce(s) Supporting Document(s) Red Blood Count 5.15 10 4.30-6.10 Normal (applies to non-numeric results) [facility]) White Blood Count 5.9 10 4.0-10.0 Normal (applies to non-numeri c results) [facility]) Hemoglobin 15.3 g/dL 13.5-17.5 Normal (applies to non-numeric resul ts) [facility]) Hematocrit 46.3 % 42.0-52.0 Normal (applies to non-numeric resul ts) [facility]) Mean Corpuscular HGB Conc 33.0 g/dL 32.0-36.5 Normal (applies to non-numeric results) [facility]) Mean Corpuscular Hemoglobin 29.7 pg 27.0-33.0 Norm al (applies to non-numeric results) [facility]) Red Cell Distribution Width 12.8 % 11.5-14.5 Norm al (applies to non-numeric results) [facility]) Mean Corpuscular Volume 89.9 fl 80.0-96.0 Normal ( applies to non-numeric results) [facility]) Platelet Count, Automated 264 10 150-450 Normal (applies to non-numeric results) [facility]) Nucleated Red Blood Cell % 0.0 % 0-0 Normal (applies to n on-numeric results) [facility] ([facility]) Procedure Vital Signs ID Date Data Source [id number] Name Value Range Interpretation Code Description Data Source(s) Body weight 86.184 kg 86.184 kg [facility] ([facility]) Body mass index (BMI) [Ratio] 28.5 kg/m2 28.5 k g/m2 [facility] ([facility]) Body weight 190.00 [lb_av] 190.00 [lb_av] [facility] ([facility]) Body height 68.5 [in_i] 68.5 [in_i] [facility] ([facility]) 5'8.50" Body temperature 97.2 [degF] 97.2 [degF] [facility] ([facility]) Respiratory rate 14 /min 14 /min [facility] ( [facility]) Heart rate 76 /min 76 /min [facility] ([facility]) Diastolic blood pressure 78 mm[Hg] 78 mm[Hg] [facility] ([facility]) Systolic blood pressure 138 mm[Hg] 138 mm[Hg] [facility] ([facility]) Body height 68.5 [in_i] 68.5 [in_i] [facility] ([facility]) 5'8.50" Body temperature 98.1 [degF] 98.1 [degF] [facility] ([facility]) Respiratory rate 14 /min 14 /min [facility] ( [facility]) Heart rate 66 /min 66 /min [facility] ([facility]) Diastolic blood pressure 78 mm[Hg] 78 mm[Hg] [facility] ([facility]) Systolic blood pressure 142 mm[Hg] 142 mm[Hg] M [facility] ([facility]) Body weight 79.834 kg 79.834 kg [facility] ([facility]) Body mass index (BMI) [Ratio] 26.4 kg/m2 26.4 k g/m2 [facility] ([facility]) Body weight 176.00 [lb_av] 176.00 [lb_av] RISHABHEN T ([facility], ) Body height 68.5 [in_i] 68.5 [in_i] RUBINA ([facility], ) 5'8.50" Respiratory rate 14 /min 14 /min [facility] ( [facility], ) Heart rate 76 /min 76 /min [facility] ([facility], ) Diastolic blood pressure 68 mm[Hg] 68 mm[Hg] [facility] ([facility], ) Systolic blood pressure 140 mm[Hg] 140 mm[Hg] Herbert DOWNING ([facility], )
== END 2020-08-15 04:26 | disposition left against medical advice (07) ==
LOC: M ED 02:33
DX: Z53.21 Procedure and treatment not carried out due to patient leaving prior to being seen by health care provider (principal)

== ENCOUNTER 2020-10-08 08:57 | Day surgery (SDC) | payer OTHER ==
[~2020-10-08] VITALS: Ht 172.7 cm; Wt 86.6 kg
[~2020-10-08 08:57] MED LIST changes: +DOCU100C16 PO; +LR 1,000 ML IV ONE; +TRAZ-252 PO; +VITMTA PO; +ceFAZolin SOD 1 GM in D5W MINI-BAG PLUS 50 ML IV ONE
[2020-10-08] MEDS ORDERED: dexameTHASONE 4 MG/ML 1ML VIAL (J1100 PER 1MG) As Ordered ONE (09:37)
[2020-10-08] MEDS ORDERED: propofoL 200 MG/20 ML VIAL As Ordered ONE (09:37)
[2020-10-08] MEDS ORDERED: ROCURONIUM BROMIDE 50 MG/5 ML VIAL As Ordered ONE (09:37)
[2020-10-08] MEDS ORDERED: LIDOCAINE 2% 100MG/5ML SDV (FOR ANES.) As Ordered ONE (09:37)
[2020-10-08] MEDS ORDERED: ONDANSETRON 4MG/2ML VIAL As Ordered ONE (09:37)
[2020-10-08] MEDS ORDERED: fentaNYL 100 MCG/2 ML INJECTION (J3010) As Ordered ONE (09:38)
[2020-10-08] MEDS ORDERED: MIDAZOLAM INJ 2MG/2ML VIAL (J2250 PER 1MG) As Ordered ONE (09:38)
[2020-10-08] MEDS ORDERED: EPINEPHrine INJ 1 MG/ML 1ML AMP As Ordered ONE (10:08)
[2020-10-08] MEDS ORDERED: LIDOCAINE 1% MDV 20ML VIAL As Ordered ONE (10:08)
[2020-10-08] MEDS ORDERED: BACITRACIN PWD 50,000 UNITS VIAL As Ordered ONE (10:09)
[2020-10-08] MEDS ORDERED: BUPIVACAINE LIPOSOME/PF 1.3% 20ML VIAL (13.3MG/ML)(EXPAREL)(C9290 PER1MG) As Ordered ONE (10:09)
[2020-10-08] MEDS ORDERED: HYDROmorphone HCL 2 MG/ML 1ML VIAL (J1170) As Ordered ONE (11:32)
[2020-10-08] MEDS ORDERED: ACETAMINOPHEN 1000MG 100ML IV BTL (OFIRMEV) (J0131 PER 10MG) As Ordered ONE (13:18)
[2020-10-08] MEDS: LR 1,000 ML IV SCH ×2 (13:35→16:45)
[2020-10-08] MEDS ORDERED: ONDANSETRON 4MG/2ML VIAL IV PRN ×2 (14:05→14:20)
[2020-10-08] MEDS ORDERED: PERCOCET 5MG/325MG TAB PO PRN (14:05)
[2020-10-08] MEDS ORDERED: ACETAMINOPHEN TAB 650MG DOSE (2X325MG) PO PRN (14:05)
--- NOTE | 2020-10-08 14:05 | POST-OPPD ---
Postoperative Procedure Note Date Of Procedure: Oct 08, 2020 PREOPERATIVE DIAGNOSIS: Bilateral gynecomastia, bilateral areolar scars. POSTOPERATIVE DIAGNOSIS: same FINDINGS: Gynecomastia PROCEDURE: Bilateral subcutaneous mastectomies for gynecomastia and breast scars revision. SURGEON: Dr Storm ANESTHESIA: General SPECIMENS: Right and left breast tissue ESTIMATED BLOOD LOSS: 25 cc REPLACED: none DRAINS: 15 FR round x 2 COMPLICATIONS: none POSTOPERATIVE CONDITION: stable MAURY STORM DO Oct 08, 2020 14:05
--- NOTE | 2020-10-08 14:05 | ROOPDOC ---
[facility] Report Of Operation Report of Operation DATE OF PROCEDURE: 10/08/20 PREOPERATIVE DIAGNOSIS: Bilateral gynecomastia, bilateral areolar scars. POSTOPERATIVE DIAGNOSIS: same FINDINGS: Gynecomastia PROCEDURE: Bilateral subcutaneous mastectomies for gynecomastia and breast scars revision. SURGEON: Dr Storm ANESTHESIA: General SPECIMENS: Right and left breast tissue ESTIMATED BLOOD LOSS: 25 cc REPLACED: none DRAINS: 15 FR round x 2 COMPLICATIONS: none POSTOPERATIVE CONDITION: stable This is a 25-year-old male who had bilateral gynecomastia procedure done more than a year ago. The patient is complaining of persistent tenderness on the Bilateral breasts where he has palpable masses, which are bothering him. The p atient wishes to have them revised. He has bilateral infra-areolar incisions with some hypertrophy, which she would like to revise as well. The studies were done again preoperatively for possibility of gynecomastia recurrence. On breast ultrasound remaining gynecomastia tissue versus scar on the bilateral breasts identified. The patient is scheduled for surgery. All of the risks and benefits and alternatives discussed with the patient at length, and he is ready to proceed. DESCRIPTION OF PROCEDURE: On the day of surgery, he was marked in the upright position. He was brought into the operating room, placed in supine position. Preoperative antibiotics given, sequential stockings placed on the lower calf. General anesthesia was induced. He was prepped and draped in the usual sterile fashion. We started our procedure with making a stab incision on the right lateral chest. Tumescent solution was infiltrated in the left breast, 400 mL total. Vaser Liposuction was used for melting down the fat and breaking out the scar tissue on the left side, and we used 3.7 three-ring cannula with 80% of the power. After that part of the procedure was completed, we used regular suction-assisted lipectomy to remove the rest of the liposuction. Then, we made an infra-areolar incision, which was along the old incision that was used previously, and dissection of thick scar tissue started out using electrocautery under direct vision with a lighted retractor. The mass was completely excised using electrocautery. The pectoralis muscle was in good condition. The skin was in good condition. The patient has a very small amount of subcuticular fat and well developed muscle tone, so the mass was completely removed and then the wound was irrigated with bacitracin irrigation solution. Then, 15 Fr round drain was placed through the initial stab incision that was done for the liposuction and placed in the cavity and then the wound was closed with interrupted #4-0 Monocryl sutures and #5-0 plain. Then, we turned our attention to the left side. Vaser Liposuction was used for melting down the fat and breaking out the scar tissue on the left side, and we used 3.7 three-ring cannula with 80% of the power. After that part of the procedure was completed, we used regular suction-assisted lipectomy to remove the rest of the liposuction. Then, we made an infra-areolar incision, which was along the old incision that was used previously, and dissection of thick scar tissue started out using electrocautery under direct vision with a lighted retractor. The mass was completely excised using electrocautery. The pectoralis muscle was in good condition. The skin was in good condition. The patient has a very small amount of subcuticular fat and well developed muscle tone, so the mass was completely removed and then the wound was irrigated with bacitracin irrigation solution. Then, 15 Fr round drain was placed through the initial stab incision that was done for the liposuction and placed in the cavity and then the wound was closed with interrupted #4-0 Monocryl sutures and #5-0 plain. Xeroform was applied to the both nipples. A bulky dressing and a compression dressing was placed. The patient was extubated in the operating room without any difficulty, transferred to the recovery room in stable condition. MAURY STORM DO Oct 08, 2020 14:05
[2020-10-08] MEDS ORDERED: fentaNYL 100 MCG/2 ML INJECTION (J3010) IV PRN (14:20)
[2020-10-08] MEDS ORDERED: MORPHINE 2 MG/ML 1ML VIAL (J2270) IV PRN (14:20)
[2020-10-08] MEDS ORDERED: METOCLOPRAMIDE INJ 10MG/2ML VIAL (J2765 PER 1) IV PRN (14:20)
[2020-10-08] MEDS ORDERED: LR 1,000 ML IV SCH (14:20)
[2020-10-08] MEDS ORDERED: oxyCODONE 5MG TAB PO PRN (14:20)
[2020-10-08 15:45] VITALS: BP 141/73
[2020-10-08 16:15] VITALS: BP 140/73
[2020-10-08 17:15] VITALS: BP 140/70
[2020-10-08] MEDS: KETOROLAC TROMETHAMINE 10 MG TAB PO PRN (18:13)
[2020-10-08 18:15] VITALS: BP 141/73
[2020-10-08 18:55] VITALS: BP 141/76
[2020-10-08 22:00] VITALS: BP 133/71
[2020-10-09] MEDS: LR 1,000 ML IV SCH (00:21)
[2020-10-09] MEDS: KETOROLAC TROMETHAMINE 10 MG TAB PO PRN ×2 (00:21→11:35)
[2020-10-09 02:00] VITALS: BP 149/71
[2020-10-09 06:00] VITALS: BP 150/72
[2020-10-09 10:00] VITALS: BP 148/64
--- NOTE | 2020-10-09 11:18 | IPNPDOC ---
Subjective General Date Seen: Oct 09, 2020 Subject Chief Complaint/History The patient is a 25-year-old male admitted with a reason for visit of Bilateral Gynecomastia, Chest Scar Contracture. Patient status post bilateral subcutaneous mastectomies for gynecomastia postop day 1. Pain controlled with Toradol, ambulating, tolerating diet. Current Medications Current Medications Current Medications Medications (Trade) Dose Ordered Sig/Ana Route PRN Reason Start Time Stop Time Status Last Admin Dose Admin Acetaminophen (Tylenol Tab) 650 mg Q6H PRN PO MILD PAIN (PS 1-4) 10/08/20 14:05 Fentanyl Citrate (Sublimaze) 25 mcg Q5MP PRN IV PAIN LEVEL 5-10 10/08/20 14:20 10/08/20 15:20 DC Ketorolac Tromethamine (ToRADol) 10 mg Q6HP PRN PO MODERATE PAIN (PS 5-7) 10/08/20 14:05 10/13/20 14:04 10/09/20 00:21 Lactated Ringer's 1,000 ml @ 75 mls/hr [id number] IV 10/08/20 14:05 10/08/20 16:45 Lactated Ringer's 1,000 ml @ 100 mls/hr Q10H IV 10/08/20 14:20 10/08/20 15:20 DC Metoclopramide HCl (REGLAN INJection) 10 mg Q6HP PRN IV NAUSEA OR VOMITING 10/08/20 14:20 10/08/20 15:20 DC Morphine Sulfate (Morphine Sulfate Inj) 2 mg Q5MP PRN IV PAIN LEVEL 4-7 10/08/20 14:20 10/08/20 15:20 DC Ondansetron HCl (ZOFRAN INJection) 4 mg Q4H PRN IV NAUSEA OR VOMITING 10/08/20 14:05 10/08/20 17:59 Ondansetron HCl (ZOFRAN INJection) 4 mg Q4HP PRN IV NAUSEA OR VOMITING 10/08/20 14:20 10/08/20 15:20 DC Oxycodone HCl (Roxicodone, Oxyir) 5 mg ASDIRECTED PRN PO PAIN LEVEL 1-4 10/08/20 14:20 10/08/20 15:20 DC Oxycodone/ Acetaminophen (Percocet 5mg/ 325mg Tablet) 2 tab Q4HP PRN PO PAIN LEVEL 8-10 10/08/20 14:05 Allergies Coded Allergies: No Known Allergies (Verified Allergy, Unknown, 10/01/20) Objective Physical Examination Examination GENERAL APPEARANCE:Patient seen, laying in bed, awake, alert, and oriented. Comfortable, in no acute distress. SKIN: Warm and moist. BREAST: Right and left soft, non-tender incisions intact. JOSE drains: 15/10 cc/24 hr. NAC: Viable, warm, symmetrical, mild post-op ecchymosis, no expanding hematoma. LUNGS: Clear to auscultation bilaterally. No wheezing appreciated. HEART: No chest wall abnormalities. Regular rate and rhythm with no murmurs appreciated. ABDOMEN: Abdomen is soft, non-tender, non-distended. EXTREMITIES: No edema identified. No calf tenderness. Vital Signs Vital Signs Date Time Temp Pulse Resp B/P (MAP) Pulse Ox O2 Delivery O2 Flow Rate FiO2 10/09/20 06:00 98.7 73 18 150/72 (98) 99 Room Air 10/08/20 14:20 10 I&Os I&O- Last 24 Hours up to 6 AM 10/09/20 05:59 Intake Total 2650 ml Output Total 510 ml Balance 2140 ml Impression Gynecomastia. S/p bilateral subcutaneous mastectomies for gynecomastia. Stable for discharge. Monitor drains. Keep compression garment Do not wet incision. F/up plastic surgery. Plan / VTE VTE Prophylaxis Ordered?: Yes MAURY STORM DO Oct 09, 2020 11:18
[2020-10-09] MEDS ORDERED: KETO10TAB PO (11:27)
== END 2020-10-09 13:35 | disposition home or self-care (01) ==
LOC: M SDC 08:57 → M MS5PR 15:35 → M SDC 10-09 13:35
PROVIDERS: ATTEND Plastic Surgery Surgery of the Hand
DX: N62 Hypertrophy of breast (principal); L90.5 Scar conditions and fibrosis of skin; Z79.899 Other long term (current) drug therapy
CPT/HCPCS: 19300; 88300; 88302; 96374; J0131; J0171; J0690; J1100; J1170; J2250; J2405; J3010

== ENCOUNTER → 2021-01-24 | Outpatient (REF) | payer OTHER ==
[~2021-01-24] MED LIST changes: -LR 1,000 ML IV ONE; -ceFAZolin SOD 1 GM in D5W MINI-BAG PLUS 50 ML IV ONE
--- NOTE | 2021-01-25 12:57 | ECHO ---
ECHOCARDIOGRAM DATE OF PROCEDURE: 01/24/2021 Age: 25 Gender: Male Height: 175 cm Weight: 86.6 kg REFERRING PHYSICIAN: Dr. Seth Bravo INDICATION: Palpitations. MEASUREMENTS: 2D Measurements: Left ventricle diastole 4.7 cm Left ventricle systole 2.9 cm Intraventricular septum 0.80 cm Posterior wall 0.86 cm Aortic root 3.0 cm Left atrium 3.5 cm Left atrium volume index 19 Proximal ascending aorta 2.7 cm Inferior vena cava 2.1 cm with more than 50% respiratory variation Doppler Measurements: No aortic stenosis or regurgitation No mitral stenosis or regurgitation Mitral E velocity 84.4 cm/s Mitral A velocity 29.6 cm/s Mild tricuspid regurgitation within normal limits. Estimated right ventricular systolic pressure 24-29 mmHg Estimated right atrial pressure 5-10 mmHg Very mild pulmonic regurgitation within normal limits. MITRAL ANNULAR TISSUE DOPPLER E prime septal 7.7 cm/s, E prime lateral 13.9 cm/s DESCRIPTION: Rhythm was sinus. Image quality was good. No pericardial effusion. This was a 2D, M-mode, color flow Doppler, and pulsed wave Doppler examination including mitral annular tissue Doppler. CONCLUSIONS: 1. Normal echocardiogram Doppler. 2. Normal left ventricle internal dimensions and wall thickness. Normal regional LV wall motion and wall thickening. Normal LV systolic function. LVEF 65% by visual estimate. Supernormal LV diastolic function.
== END ==
LOC: M CARPUL 10:28 → EDSTATUS 10:30
PROVIDERS: ATTEND Internal Medicine
DX: R00.2 Palpitations (principal)

== ENCOUNTER → 2021-01-29 | Outpatient (REF) ==
--- NOTE | 2021-01-29 13:46 | REP ---
INDICATION: PAIN COMPARISON: 10/22/2019 TECHNIQUE: PA and lateral. FINDINGS: The mediastinum and cardiac silhouette are normal. The lung marie are clear and without acute consolidation, effusion, or pneumothorax. The skeletal structures are intact and normal. IMPRESSION: No acute cardiopulmonary process. <Electronically signed by Matias Pineda > 01/29/21 [id number]
--- NOTE | 2021-01-29 13:47 | REP ---
INDICATION: PAIN COMPARISON: None. TECHNIQUE: AP and lateral views of the thoracic spine. FINDINGS: Alignment and kyphosis is maintained. Vertebral bodies intact. No acute fracture / compression injury or subluxation. No degenerative changes. Paravertebral soft tissues are normal. IMPRESSION: Normal thoracic spine series. <Electronically signed by Matias Pineda > 01/29/21 [id number]
--- NOTE | 2021-01-29 13:48 | REP ---
INDICATION: PAIN COMPARISON: None. TECHNIQUE: AP, lateral, coned-down views of the lumbar spine. FINDINGS: Three views of the lumbosacral spine demonstrate satisfactory alignment and lordosis without acute fracture / compression injury or subluxation. IMPRESSION: 1. No acute fracture / compression injury or subluxation. 2. No significant degenerative changes are appreciated. <Electronically signed by Matias Pineda > 01/29/21 [id number]
--- NOTE | 2021-01-29 15:13 | REP ---
INDICATION: PAIN. COMPARISON: None. TECHNIQUE: AP, lateral, open-mouth and swimmer's views of the cervical spine. FINDINGS: Alignment and lordosis maintained. Vertebral bodies intact. No significant degenerative changes are appreciated. Disc spaces are normal/maintained. Paravertebral soft tissues normal. IMPRESSION: Normal cervical spine radiograph series. <Electronically signed by Matias Pineda > 01/29/21 [id number]
== END ==
LOC: M PLAIMG 11:56
PROVIDERS: ATTEND Internal Medicine
DX: Z00.00 Encounter for general adult medical examination without abnormal findings (principal)

== ENCOUNTER → 2021-03-29 | Outpatient (REF) | payer OTHER ==
[2021-03-29 21:36] LABS: GC DNA AMPLIFICATION NEGATIVE (NEGATIVE)
== END ==
LOC: M WUC 19:20
PROVIDERS: ATTEND Physician Assistant
DX: R30.0 Dysuria (principal)